=== PATIENT | female | born 1975 | race African-American/Black ===

== ENCOUNTER 2019-02-15 07:32 | Emergency (ER) | payer MEDICAID ==
[~2019-02-15] VITALS: Ht 167.6 cm; Wt 70.0 kg
[2019-02-15] MEDS ORDERED: MORPHINE SULFATE 4 MG/ML CPJ (NOT FOR IM USE) IV STA (08:24)
[2019-02-15 09:03] VITALS: BP 109/77
== END 2019-02-15 09:03 | disposition left against medical advice (07) ==
LOC: ER 07:32
DX: R07.89 Other chest pain (principal)
CPT/HCPCS: 93005; 99283

== ENCOUNTER 2019-05-30 23:35 | Emergency (ER) | payer MEDICAID ==
[~2019-05-30] VITALS: Ht 157.5 cm; Wt 73.9 kg
[2019-05-30 23:48] VITALS: BP 114/76
== END 2019-05-31 01:45 | disposition left against medical advice (07) ==
LOC: ER 23:35
DX: Z53.21 Procedure and treatment not carried out due to patient leaving prior to being seen by health care provider (principal)
CPT/HCPCS: 99281

== ENCOUNTER 2019-08-12 15:50 | Emergency (ER) | payer MEDICAID ==
[~2019-08-12] VITALS: Ht 157.5 cm; Wt 73.0 kg
[2019-08-12 15:54] VITALS: BP 120/70
[2019-08-12] MEDS ORDERED: KETOROLAC 30MG/ML VIAL IM ONE (16:30)
[2019-08-12 17:20] LABS: CLARITY URINE CLOUDY (CLEAR); COLOR URINE YELLOW (YELLOW); KETONES URINE TRACE (NEGATIVE); LEUKOCYTE ESTERASE URINE TRACE (NEGATIVE); NITRITE URINE NEGATIVE (NEGATIVE); OCCULT BLOOD URINE TRACE (NEGATIVE); PH URINE 5.5 (4.5-8.0); PROTEIN URINE NEGATIVE (NEGATIVE); SPECIFIC GRAVITY URINE 1.035 (1.005-1.030)
== END 2019-08-12 17:32 | disposition home or self-care (01) ==
LOC: ER 15:50
DX: M25.511 Pain in right shoulder (principal)
CPT/HCPCS: 73030; 81003; 81025; 99284